=== PATIENT | male | born 1990 | race African-American/Black ===

== ENCOUNTER 2017-12-16 09:11 | Emergency (ER) | payer BC ==
[2017-12-16 09:21] VITALS: BP 115/75; PULSE 69; TEMP 98.4; BMI 22.0
--- NOTE | 2017-12-16 10:16 | PDOC ---
History of Present Illness - General Chief Complaint: Migraine Headache Stated Complaint: HEADACHE Time Seen by Provider: 12/16/17 09:33 History Source: Patient Exam Limitations: No Limitations - History of Present Illness Initial Comments: 12/16/17 10:11 Came for evaluation of frontal and sinus headache pain. has suffered for 4 days with some resolve with Advil. Denies fevers, denies purulent drainage from nose, denies cough. has used old-fashioned remedies with some relief also. 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 Timing/Duration: unsure Severity: mild, moderate Modifying Factors: improves with: medication Associated Symptoms: reports: headaches, loss of appetite, malaise. denies: fever/chills Past History - Travel Traveled outside of the country in the last 30 days: No Close contact w/someone who was outside of country & ill: No - Past Medical History Allergies/Adverse Reactions: Allergies Allergy/AdvReac Type Severity Reaction Status Date / Time No Known Allergies Allergy Verified 12/16/17 09:22 Home Medications: Ambulatory Orders NK [No Known Home Medication] 12/16/17 - Suicide/Smoking/Psychosocial Hx Smoking History: Current some day smoker Information on smoking cessation initiated: No Hx Alcohol Use: Yes (social) Drug/Substance Use Hx: Yes Review of Systems - Review of Systems Able to Perform ROS?: Yes Is the patient limited Kosovan proficient: Yes Constitutional: Yes: Symptoms Reported, See HPI, Chills, Malaise. No: Fever HEENTM: Yes: Symptoms Reported, See HPI, Eye Pain, Nose Congestion Respiratory: Yes: Symptoms reported, See HPI, Cough. No: Wheezing ABD/GI: No: Symptoms Reported Neurological: No: Symptoms reported All Other Systems: Reviewed and Negative *Physical Exam - Vital Signs Last Vital Signs Temp Pulse Resp BP Pulse Ox 98.4 F 69 20 115/75 99 12/16/17 09:19 12/16/17 09:19 12/16/17 09:19 12/16/17 09:19 12/16/17 09:19 - Physical Exam General Appearance: Yes: Nourished, Appropriately Dressed, Mild Distress HEENT: positive: EOMI, MILI, Normal ENT Inspection, TMs Normal, Pharynx Normal, Nasal Congestion, Rhinorrhea, Sinus Tenderness (mild tenderness, without swelling to frontal and ethmoid sinuses. Patient area of reported headache). negative: Pharyngeal Erythema, Tonsillar Exudate, Tonsillar Erythema Neck: positive: Supple. negative: Tender, Lymphadenopathy (R), Lymphadenopathy (L) Respiratory/Chest: positive: Lungs Clear, Normal Breath Sounds. negative: Wheezing Gastrointestinal/Abdominal: positive: Soft Extremity: positive: Normal Capillary Refill Integumentary: positive: Normal Color, Dry, Warm Neurologic: positive: body shop manager II-XII NML intact, Fully Oriented, Alert, Normal Mood/ Affect, Normal Response, Motor Strength 5/5 *DC/Admit/Observation/Transfer Diagnosis at time of Disposition: Common cold virus - Discharge Dispostion Disposition: HOME Condition at time of disposition: Stable Admit: No - Referrals - Patient Instructions Printed Discharge Instructions: DI for Common Cold Additional Instructions: Rest, drink lots of fluids: Teas, water, soups, Pedialyte Saltwater gargles Steamy showers/seem to face break up mucus Avoid contact with others until fevers and cough resolved Lots of handwashing and good hygiene Continue [id number] medications for symptomatic relief Tylenol or Motrin for fever and pain Followup with private physician in one to 2 days as needed Return to emergency department for worsened symptoms, fevers, dehydration - Post Discharge Activity Forms/Work/School Notes: Back to Work
== END 2017-12-16 10:23 | disposition home or self-care (01) ==
LOC: JERFT 09:11
DX: J00 Acute nasopharyngitis [common cold] (principal)
CPT/HCPCS: 99281-25

== ENCOUNTER 2020-09-08 12:33 | Emergency (ER) | payer BC, OTHER ==
[2020-09-08 12:53] VITALS: BMI 22.1
[2020-09-08] MEDS ORDERED: ONDANSETRON 4 MG/2 ML VIAL IVPUSH ONE (13:19)
[2020-09-08] MEDS ORDERED: ACETAMINOPHEN 1000 MG/100 ML VIAL (NON FORMULARY) IVPB ONE (13:19)
[2020-09-08] MEDS ORDERED: SODIUM CHLORIDE 1,000 ML IV STA (13:19)
[2020-09-08] MEDS ORDERED: ONDANSETRON 4 MG/2 ML VIAL ONE (14:16)
[2020-09-08] MEDS ORDERED: ACETAMINOPHEN INJECTION 100 ML IVPB ONE (14:16)
[2020-09-08 14:56] LABS: BASO % 0.2 % (0-2.0); EOS % 0.1 % (0-4.5); HEMATOCRIT 45.5 % (35.4-49); HEMOGLOBIN 15.1 GM/dL (11.7-16.9); LYMPH % 9.6 % (8-40); MCH 29.5 pg (25.7-33.7); MCHC 33.2 g/dl (32.0-35.9); MEAN CELL VOLUME 88.8 fl (80-96); MEAN PLT VOLUME 8.7 fl (7.5-11.1); MONO % 2.8 % (3.8-10.2); NEUT % 87.3 % (42.8-82.8); PLATELET COUNT 178 K/MM3 (134-434); RBC 5.12 M/mm3 (4.00-5.60); RDW 12.8 % (11.9-15.9); WHITE BLOOD COUNT 6.7 K/mm3 (4.0-10.0)
[2020-09-08 15:21] LABS: POTASSIUM 3.6 mmol/L (3.5-5.1)
[2020-09-08 15:22] LABS: CALCIUM 9.1 mg/dL (8.5-10.1)
[2020-09-08 15:23] LABS: ALBUMIN 4.8 g/dl (3.4-5.0); BLOOD UREA NITROGEN 20.1 mg/dL (7-18); MAGNESIUM 1.8 mg/dL (1.8-2.4)
[2020-09-08 15:26] LABS: CREATININE 1.3 mg/dL (0.55-1.3)
[2020-09-08 15:28] LABS: TOT PROT 8.5 g/dl (6.4-8.2)
[2020-09-08 16:03] LABS: URINE APPEARANCE CLEAR; URINE BILIRUBIN NEGATIVE (NEGATIVE); URINE COLOR YELLOW; URINE GLUCOSE (UA) NEGATIVE (NEGATIVE); URINE KETONE 2+ (NEGATIVE); URINE LEUK ESTERASE NEGATIVE (NEGATIVE); URINE NITRITE NEGATIVE (NEGATIVE); URINE PROTEIN NEGATIVE (NEGATIVE); URINE UROBILINOGEN 0.2 mg/dL (0.2-1.0)
[2020-09-08 16:26] LABS: URINE AMPHETAMINES NEGATIVE ng/ml (CUTOFF=500)
[2020-09-08 16:28] LABS: PHENCYCLIDINE,URINE NEGATIVE ng/ml (CUTOFF=25)
[2020-09-08 16:40] LABS: COCAINE, UR NEGATIVE ng/ml (CUTOFF=300); METHADONE, UR NEGATIVE ng/ml (CUTOFF=300); OPIATES, URI NEGATIVE ng/ml (CUTOFF=300); URINE BARBITURATES NEGATIVE ng/ml (CUTOFF=200); URINE BENZODIAZEPINES NEGATIVE ng/ml (CUTOFF=200)
[2020-09-08 17:15] VITALS: BP 115/67; PULSE 73; TEMP 98.3
== END 2020-09-08 17:05 | disposition home or self-care (01) ==
LOC: JER 12:33
PROC: 3E0337Z Introduction of Electrolytic and Water Balance Substance into Peripheral Vein, Percutaneous Approach (ICD-10-PCS; principal; 2020-09-08)
PROC: 3E033GC Introduction of Other Therapeutic Substance into Peripheral Vein, Percutaneous Approach (ICD-10-PCS; principal; 2020-09-08)
DX: R11.2 Nausea with vomiting, unspecified (principal)
CPT/HCPCS: 36415; 80053; 80307; 81003; 83690; 83735; 85025; 99284-25; J0131

== ENCOUNTER 2023-05-19 08:10 | Emergency (ER) | payer SELFPAY ==
[2023-05-19] MEDS ORDERED: FAMOTIDINE 20 MG/50 ML IVPB 20 MG/50 ML MG IVPB ONE (08:15)
[2023-05-19] MEDS ORDERED: SODIUM CHLORIDE 0.9% 1000 ML INFUS.BAG IV ONE (08:15)
[2023-05-19] MEDS ORDERED: ONDANSETRON 4 MG/2 ML VIAL IVPUSH ONE (08:15)
[2023-05-19 08:39] VITALS: BP 113/78; PULSE 58; RESP 18; TEMP 98; BMI 21.9
[2023-05-19 09:18] LABS: INR 1.06 (0.83-1.09); PROTHROMBIN TIME (PATIENT) 12.3 SEC (9.7-13.0)
[2023-05-19 09:26] LABS: HEMATOCRIT 43.5 % (35.4-49); HEMOGLOBIN 14.4 G/dL (11.7-16.9); MCH 29.6 pg (25.7-33.7); MCHC 33.1 g/dl (32.0-35.9); MEAN CELL VOLUME 89.7 fl (80-96); MEAN PLT VOLUME 8.5 fl (7.5-11.1); PLATELET COUNT 170.6 10^3/uL (134-434); RBC 4.85 10^6/uL (4.00-5.60); RDW 13.8 % (11.9-15.9); WHITE BLOOD COUNT 4.3 10^3/uL (4.0-10.8)
[2023-05-19 09:32] LABS: ALBUMIN 4.9 g/dl (3.4-5.0); BLOOD UREA NITROGEN 20.8 mg/dl (7-18); CALCIUM 9.6 mg/dl (8.5-10.1); CREATININE 1.1 mg/dl (0.6-1.3); POTASSIUM 3.8 mmol/L (3.5-5.1); SGOT/AST 25.1 U/L (15-37); SGPT/ALT 18.7 U/L (7-52); TOT PROT 7.7 g/dl (6.4-8.2)
[2023-05-19] MEDS ORDERED: ONDANSETRON 4 MG/2 ML VIAL ONE (09:33)
[2023-05-19 09:42] LABS: PLATELET ESTIMATE ADEQUATE
[2023-05-19 12:47] LABS: BILIRUBIN,TOTAL 0.8 mg/dL (0.2-1)
== END 2023-05-19 11:07 | disposition home or self-care (01) ==
LOC: FER 08:10
PROC: 3E033GC Introduction of Other Therapeutic Substance into Peripheral Vein, Percutaneous Approach (ICD-10-PCS; principal; 2023-05-19)
PROC: 3E033GC Introduction of Other Therapeutic Substance into Peripheral Vein, Percutaneous Approach (ICD-10-PCS; 2023-05-19)
DX: R11.2 Nausea with vomiting, unspecified (principal)
CPT/HCPCS: 36415; 71046-TC-FY; 80053; 82272; 85027; 85610; 85730; 99284-25

== ENCOUNTER 2023-10-26 10:36 | Emergency (ER) | payer SELFPAY ==
[2023-10-26 10:45] VITALS: BP 120/74; PULSE 67; RESP 18; TEMP 97.9; BMI 21.8
== END 2023-10-26 12:35 | disposition home or self-care (01) ==
LOC: JERFT 10:36
DX: U07.1 COVID-19 (principal); R04.0 Epistaxis
CPT/HCPCS: 0241U-QW; 99283-25

== ENCOUNTER 2025-03-16 04:25 | Emergency (ER) | payer OTHER ==
[2025-03-16 04:36] VITALS: BP 122/74; PULSE 75; RESP 18; TEMP 98.4; BMI 21.7
[2025-03-16] MEDS ORDERED: FAMOTIDINE 20 MG/50 ML IVPB 20 MG/50 ML MG IVPB ONE (05:00)
[2025-03-16] MEDS ORDERED: ACETAMINOPHEN INJECTION 100 ML ONE (05:00)
[2025-03-16] MEDS ORDERED: ONDANSETRON 4 MG/2 ML VIAL ONE (05:00)
[2025-03-16 05:17] LABS: ABSOLUTE IMMATURE GRANULOCYTES 0.02 x10^3/uL (0.0-0.031); BASOPHILS # 0.02 x10^3/uL (0.01-0.08); EOSINOPHIL % 0.2 % (0.8-7.0); EOSINOPHILS # 0.01 x10^3/uL (0.04-0.54); MCHC 33.7 g/dl (32.3-36.5); MEAN CELL VOLUME 87.1 fl (79.0-92.2); MEAN PLT VOLUME 9.8 fl (9.4-12.4); MONOCYTE # 0.49 x10^3/uL (0.30-0.82); MONOCYTE % 8.7 % (5.3-12.2); RDW 12.2 % (12.0-15.6)
[2025-03-16] MEDS: ONDANSETRON 4 MG/2 ML VIAL IVPB ONE (05:17)
[2025-03-16] MEDS: SODIUM CHLORIDE 0.9% 500 ML INFUS.BAG IV ONE (05:17)
[2025-03-16] MEDS: ACETAMINOPHEN 1000 MG/100 ML BAG IVPB ONE (05:17)
[2025-03-16] MEDS: FAMOTIDINE 20 MG/50 ML IVPB 20 MG/50 ML MG IVPB ONE (05:17)
[2025-03-16 05:47] LABS: CO2 25.0 mmol/L (21-32); GLUCOSE,RANDOM 121.0 mg/dL (74-106)
[2025-03-16 05:50] LABS: CREATININE 1.4 mg/dL (0.55-1.3); SGOT/AST 32.0 U/L (15-37); SGPT/ALT 24.0 U/L (13-61)
[2025-03-16 05:51] LABS: TOT PROT 7.3 g/dl (6.4-8.2)
[2025-03-16 05:53] LABS: ALK PHOS 45.0 U/L (45-117)
== END 2025-03-16 06:32 | disposition home or self-care (01) ==
LOC: JER 04:25
PROC: 3E033GC Introduction of Other Therapeutic Substance into Peripheral Vein, Percutaneous Approach (ICD-10-PCS; principal; 2025-03-16)
PROC: 3E033NZ Introduction of Analgesics, Hypnotics, Sedatives into Peripheral Vein, Percutaneous Approach (ICD-10-PCS; 2025-03-16)
PROC: 3E033GC Introduction of Other Therapeutic Substance into Peripheral Vein, Percutaneous Approach (ICD-10-PCS; 2025-03-16)
DX: R11.2 Nausea with vomiting, unspecified (principal); N17.9 Acute kidney failure, unspecified; R10.13 Epigastric pain
CPT/HCPCS: 36415; 80053; 83690; 83735; 85025; 99284-25